=== PATIENT | male | born 1970 | race Caucasian/White ===

== ENCOUNTER 2021-04-07 06:08 | Day surgery (SDC) | payer OTHER ==
[~2021-04-07] VITALS: Ht 185.4 cm; Wt 132.0 kg
[~2021-04-07 06:08] MED LIST: HYDROmorphone 2 MG/ML INJ. IVP PRN; IV RINGERS,LACTATED 1000ML 1,000 ML IV SCH; PROCHLORPERAZINE 10 MG/2 ML VIAL. IVP PRN; ceFAZolin SODIUM 3 GM in IV DEXTROSE 5% 100ML 100 ML IV PRN; fentaNYL PF VIAL 100 MCG/2 ML VIAL IVP PRN
[2021-04-07 06:33] VITALS: BP 145/95
[2021-04-07] MEDS ORDERED: BUPIVACAINE-EPI 0.5% 30 ML VIAL KIT. ONE (07:05)
[2021-04-07] MEDS ORDERED: ROCURONIUM 50 MG/5 ML VIAL. ONE (07:17)
[2021-04-07] MEDS ORDERED: ONDANSETRON PF 4 MG/2 ML VIAL. ONE (07:18)
[2021-04-07] MEDS ORDERED: PROPOFOL 10 MG/ML (20ML) VIAL. IV ONE (07:18)
[2021-04-07] MEDS ORDERED: MIDAZOLAM HCL/PF 2 MG/2 ML VIAL. ONE (07:18)
[2021-04-07] MEDS ORDERED: LIDOCAINE 2% PF 5 ML VIAL. ONE (07:18)
[2021-04-07] MEDS ORDERED: fentaNYL PF VIAL 100 MCG/2 ML VIAL ONE ×3 (07:18→09:03)
[2021-04-07] MEDS ORDERED: DEXAMETHASONE SOD PHOS 4 MG/ML VIAL ONE (07:18)
[2021-04-07] MEDS ORDERED: SEVOFLURANE > 120 MINUTES. IH ONE (07:19)
[2021-04-07] MEDS ORDERED: KETOROLAC 30 MG/ML VIAL. ONE (07:43)
--- NOTE | 2021-04-07 08:49 | PDOC4 ---
Operative Note Operative Note Operative Note: Preoperative Diagnosis: Umbilical hernia Postoperative Diagnosis: Same Procedure: Umbilical hernia repair with mesh Surgeon: Axel [employer] Technician: CHINMAY Monroe, Taras Juarez, [place] 4 Anesthesia: General EBL: 10 mL Specimen: None Drains: None Complications: None Indication: The patient is a 50-year-old male who is referred with umbilical hernia. He is interested in operative repair. The risks of surgery were discussed which include bleeding, infection, recurrence, pain, anesthetic risk, mesh reaction, potential need for additional surgery procedure. He understands and would like to proceed. Description: The patient was taken the operating room and placed supine in the operating table. General anesthesia was performed. The abdomen was prepped with ChloraPrep and draped with sterile towels, sheets, and an Ioban. A curved infraumbilical incision was made in the skin with a scalpel. Cautery dissection was carried down to the fascia. The umbilical tissue was elevated off the fascia exposing the hernia defect. A preperitoneal plane was developed circumferentially with cautery and blunt dissection. A medium sized Ventralex ST mesh was placed in this preperitoneal plane. The mesh was sutured into position with 0 Prolene in horizontal mattress fashion. The fascial edges were reapproximated with 0 Prolene. The umbilicus was secured back to the fascia with 0 Vicryl. The subcutaneous tissue was closed with 3-0 Vicryl. The skin was approximated with 4-0 Monocryl and infiltrated with half percent Marcaine with epinephrine. Steri-Strips and a sterile dressing were applied. The patient tolerated the procedure well and was sent to the recovery room in stable condition. At the end of the case all counts were correct. RADHA WEEKS MD Apr 07, 2021 08:49
[2021-04-07] MEDS ORDERED: OXYC-325 PO (08:52)
--- NOTE | 2021-04-07 08:59 | DISCH ---
DISCHARGE INSTRUCTIONS Condition on Discharge Condition on Discharge: Stable Activity After Discharge Activity Instructions for Disc: Other, see below (No lifting over 20 lbs X 4 weeks, no driving while taking pain meds) Diet after Discharge Diet after Discharge: Regular Wound Incision Care Wound/Incision Care: Other, see below Follow-Up Follow up with: Dr Weeks in 2 weeks in office, call for appt [phone] RADHA WEEKS MD Apr 07, 2021 08:59
[2021-04-07] MEDS ORDERED: MORPHINE SULFATE 2 MG/ML INJ. ONE (09:03)
[2021-04-07] MEDS: MORPHINE SULFATE 2 MG/ML INJ. IVP PRN ×2 (09:08→09:19)
[2021-04-07] MEDS: fentaNYL PF VIAL 100 MCG/2 ML VIAL IVP PRN ×2 (09:08→09:17)
[2021-04-07] MEDS ORDERED: oxyCODONE/APAP 5/325 1 TAB TABLET PO ONE ×2 (09:30)
[2021-04-07] MEDS ORDERED: oxyCODONE/APAP 5/325 1 TAB TABLET ONE (09:34)
[2021-04-07 09:49] VITALS: BP 131/85
== END 2021-04-07 10:25 | disposition home or self-care (01) ==
LOC: SURG 06:08
PROVIDERS: ATTEND Surgery
DX: K42.9 Umbilical hernia without obstruction or gangrene (principal); Z79.899 Other long term (current) drug therapy; Z98.890 Other specified postprocedural states; Z72.89 Other problems related to lifestyle
CPT/HCPCS: 49585; J1100; J1885; J2250; J2270; J2405; J2704; J3010; A4364; A4452; A4930; A6402; C1781